=== PATIENT | female | born 1980 | race Caucasian/White ===

== ENCOUNTER 2018-04-21 10:20 | Emergency (ER) | payer MEDICAID ==
[~2018-04-21] VITALS: Ht 170.2 cm; Wt 121.1 kg
[2018-04-21] MEDS ORDERED: cefTRIAXone SOD 1,000 MG VL IM ONE (14:00)
[2018-04-21 14:15] VITALS: BP 149/86
== END 2018-04-21 14:24 | disposition home or self-care (01) ==
LOC: ER 10:20
DX: O26.891 Other specified pregnancy related conditions, first trimester (principal); L03.211 Cellulitis of face; Z3A.13 13 weeks gestation of pregnancy
CPT/HCPCS: 96372; 99283; J0696

== ENCOUNTER 2018-07-03 16:05 | Observation (INO) | payer MEDICAID ==
[2018-07-03] MEDS ORDERED: ESCI10TA PO (17:16)
[2018-07-03] MEDS ORDERED: PREN-96 PO (17:16)
== END 2018-07-03 17:00 | disposition home or self-care (01) | DRG 566 ==
LOC: LDRP 16:05
PROVIDERS: ADMIT Specialist; ATTEND Specialist
DX: O36.8120 Decreased fetal movements, second trimester, not applicable or unspecified (principal); Z3A.23 23 weeks gestation of pregnancy
CPT/HCPCS: 59025; 81002; G0378

== ENCOUNTER 2018-10-03 16:00 | Observation (INO) | payer MEDICAID ==
[~2018-10-03 16:00] MED LIST: ESCI10TA PO; PREN-96 PO
== END 2018-10-03 17:00 | disposition home or self-care (01) | DRG 566 ==
LOC: LDRP 16:00
PROVIDERS: ADMIT Specialist; ATTEND Specialist
DX: O62.9 Abnormality of forces of labor, unspecified (principal); O09.513 Supervision of elderly primigravida, third trimester; Z3A.36 36 weeks gestation of pregnancy
CPT/HCPCS: 59025; 81002; 87086; G0378

== ENCOUNTER 2018-10-13 10:40 | Observation (INO) | payer MEDICAID | END 2018-10-13 12:10 | disposition home or self-care (01) | DRG 566 | LOC: LDRP 10:40 | PROVIDERS: ADMIT Obstetrics & Gynecology; ATTEND Obstetrics & Gynecology | DX: O36.63X0 Maternal care for excessive fetal growth, third trimester, not applicable or unspecified (principal); O09.513 Supervision of elderly primigravida, third trimester; Z3A.37 37 weeks gestation of pregnancy | CPT/HCPCS: 59025; 76818; 81002; G0378 ==

== ENCOUNTER 2018-10-16 06:08 | Inpatient (IN) | payer MEDICAID ==
[~2018-10-16] VITALS: Ht 2.5 cm; Wt 0.0 kg
[2018-10-16] VITALS (9 sets, daily range): BP systolic 97–141; BP diastolic 66–92
[2018-10-16] MEDS: LACTATED RINGER'S 1,000 ML IV SCH ×2 (08:00→17:19)
[2018-10-16 09:16] LABS: Urine Bacteria NONE SEEN /hpf (None Seen); Urine Blood 2+ /uL (Negative); Urine Mucus FEW (None Seen); Urine Specific Gravity 1.035 (1.001-1.035); Urine WBC 3 /hpf (0 - 5)
[2018-10-16 09:20] LABS: Albumin 2.3 g/dL (3.4-5.0); Potassium 3.6 mmol/L (3.5-5.1)
[2018-10-16 09:25] LABS: BUN/Creatinine Ratio 17.5; Bilirubin, Total 0.3 mg/dL (0.2-1.0); Calcium 8.1 mg/dL (8.5-10.1); Total Protein 6.1 g/dL (6.4-8.2); Uric Acid 4.3 mg/dL (2.6-6.0)
[2018-10-16 09:27] LABS: INR 0.84 (0.9-1.15); Partial Thromboplastin Time 24.7 sec (23.78-33.04); Prothrombin Time 9.1 sec (9.27-12.13)
[2018-10-16] MEDS ORDERED: NALBUPHINE HCL 10 MG/1ml INJECTION ONE (09:30)
[2018-10-16 10:57] LABS: Basophils # (auto) 0 uL; Eosinophils # (auto) 0 uL; Eosinophils % (auto) 0.1 % (0.0-7.0); Hemoglobin 10.6 g/dL (12.2-16.2)
[2018-10-16 10:58] LABS: Basophils % (auto) 0.3 % (0.0-2.0); Hematocrit 32.9 % (36.0-46.0); Lymphocytes # (auto) 1.3 uL; Lymphocytes % (auto) 9.8 % (10.0-50.0); Mean Corpuscular Hemoglobin 26.8 pg (28.0-32.0); Mean Corpuscular Hgb Conc. 32.3 g/dL (32.0-36.0); Mean Corpuscular Volume 83.1 fL (80.0-100.0); Monocytes # (auto) 0.5 uL; Monocytes % (auto) 3.6 % (0.0-12.0); Neutrophils # (auto) 11.6 uL; Neutrophils % (auto) 86.2 % (37.0-80.0); Platelet Count (auto) 154 10^3/uL (140-450); Red Blood Cells 3.96 10^6/uL (4.0-5.20); Red Cell Distribution Width 15.3 % (11.8-14.3); White Blood Cell 13.5 10^3/uL (4.4-10.8)
[2018-10-16 11:07] LABS: Alcohol, Urine < 3.0 mg/dL (0-5); Amphetamine Screen, Urine NEGATIVE (NEGATIVE); Barbiturate Scree,Urine NEGATIVE (NEGATIVE); Benzodiazephine Screen, Urine NEGATIVE (NEGATIVE); Cannabinoid Screen, Urine NEGATIVE (NEGATIVE); Cocaine Screen, Urine NEGATIVE (NEGATIVE); Opiate Scree,Urine NEGATIVE (NEGATIVE); Phencyclidine Screen, Urine NEGATIVE (NEGATIVE)
[2018-10-16] MEDS ORDERED: TETRACAINE 1% INJ 2 ML VIAL IJ ONE (11:58)
[2018-10-16] MEDS ORDERED: fentaNYL CITRATE 100 MCG/2 ML VL ONE (12:18)
[2018-10-16] MEDS ORDERED: MIDAZOLAM HCL 1MG/1ML-2 ML VIAL ONE (12:18)
[2018-10-16] MEDS ORDERED: D5 IV SCH (12:24)
[2018-10-16] MEDS ORDERED: OXYTOCIN IV SCH (12:24)
[2018-10-16] MEDS ORDERED: LACTATED RINGERS IV SCH (12:24)
[2018-10-16] MEDS ORDERED: ceFAZolin 1GM VL ONE (12:28)
[2018-10-16] MEDS ORDERED: OXYTOCIN 10 UNIT/ML 10ML VIAL ONE (12:28)
[2018-10-16] MEDS ORDERED: MORPHINE SULF(PF) 0.5MG/ML 10ML VIAL ONE (12:29)
[2018-10-16] MEDS ORDERED: MORPHINE SULFATE 4 MG/ML SYR/VIAL IV PRN (12:30)
[2018-10-16] MEDS ORDERED: ONDANSETRON HCL 4 MG/2 ML VIAL IV PRN ×2 (12:30→13:45)
[2018-10-16] MEDS ORDERED: ceFAZolin 1GM/50ML 50 ML IV SCH (12:30)
[2018-10-16] MEDS ORDERED: LABETALOL HCL 5 MG/ML 4ML SYRINGE IV PRN (13:45)
[2018-10-16] MEDS ORDERED: DEXAMETHASONE SOD PHOS 10MG/1ML VIAL INJ IV PRN (13:45)
[2018-10-16] MEDS ORDERED: diphenhdrAMINE HCL 50 MG/1 ML VL IV PRN (13:45)
[2018-10-16] MEDS ORDERED: NALBUPHINE HCL 10 MG/1ml INJECTION SUBCUT ONE (13:45)
[2018-10-16] MEDS ORDERED: NALOXONE HCL 0.4 MG/ML VIAL IV PRN (13:45)
[2018-10-16] MEDS ORDERED: HYDROmorphone HCL 2 MG/ML VL IV PRN (13:45)
[2018-10-16] MEDS ORDERED: MIDAZOLAM HCL 1MG/1ML-2 ML VIAL IV PRN (13:45)
[2018-10-16] MEDS ORDERED: ePHEDrine SULFATE 50 MG/ML AMP IV PRN (13:45)
--- NOTE | 2018-10-16 14:15 | NUR ---
INFANT BROUGHT TO PACU FOR SKIN TO SKIN AND
--- NOTE | 2018-10-16 14:45 | NUR ---
Teaching: Reviewed information in [employer] booklet with patient. Discussed benefits of and risks associated with not . Discussed different positions, proper latch, feeding cues, and baby-led . Provided information of medication side effects related to . All questions and concerns addressed at this time. Patient verbalized understanding of information.
--- NOTE | 2018-10-16 15:00 | NUR ---
Report received from Yumiko nutritionist Dressing dry clean and intact, Fundus 2 below, Vitals stable.
--- NOTE | 2018-10-16 16:00 | NUR ---
[facility] Pt cleaned and new pad placed.
[2018-10-16] MEDS: KETOROLAC TROMETH 30 MG/ML 1ML VIAL IV PRN (17:18)
[2018-10-16 20:26] LABS: Basophils # (auto) 0 uL; Basophils % (auto) 0.1 % (0.0-2.0); Eosinophils # (auto) 0 uL; Hematocrit 31.4 % (36.0-46.0); Hemoglobin 10.1 g/dL (12.2-16.2); Lymphocytes # (auto) 1.6 uL; Lymphocytes % (auto) 11.8 % (10.0-50.0); Mean Corpuscular Hgb Conc. 32.2 g/dL (32.0-36.0); Mean Corpuscular Volume 83.9 fL (80.0-100.0); Monocytes # (auto) 0.6 uL; Monocytes % (auto) 4.3 % (0.0-12.0); Neutrophils # (auto) 11.3 uL; Neutrophils % (auto) 83.8 % (37.0-80.0); Nucleated Red Blood Cells % 0.1 %; Platelet Count (auto) 155 10^3/uL (140-450); Red Blood Cells 3.74 10^6/uL (4.0-5.20); Red Cell Distribution Width 15.4 % (11.8-14.3); White Blood Cell 13.4 10^3/uL (4.4-10.8)
[2018-10-16] MEDS: ceFAZolin 1GM/50ML 50 ML IV SCH (21:10)
--- NOTE | 2018-10-16 23:35 | NUR ---
Spoke with Varghese CABA about low urinary output. Orders received to give 500ml LR bolus. Will follow through.
[2018-10-17] VITALS (8 sets, daily range): BP systolic 118–138; BP diastolic 63–84
--- NOTE | 2018-10-17 01:40 | NUR ---
Ambulation: Patient OOB with standby assistance by RN. Patient ambulated to bathroom with steady gait to bedside chair. Sawyer catheter still in place per M. CN orders. [facility] teaching provided with returned demonstration by patient. Clean gown provided and bed linen changed. Patient sits in chair at bedside with no distress noted.
[2018-10-17] MEDS: ceFAZolin 1GM/50ML 50 ML IV SCH ×2 (04:58→12:52)
[2018-10-17 06:50] LABS: Basophils # (auto) 0 uL; Basophils % (auto) 0.1 % (0.0-2.0); Eosinophils # (auto) 0 uL; Eosinophils % (auto) 0.1 % (0.0-7.0); Hematocrit 28.2 % (36.0-46.0); Hemoglobin 9.4 g/dL (12.2-16.2); Lymphocytes # (auto) 0.9 uL; Lymphocytes % (auto) 9.2 % (10.0-50.0); Mean Corpuscular Hemoglobin 28.1 pg (28.0-32.0); Mean Corpuscular Hgb Conc. 33.5 g/dL (32.0-36.0); Mean Corpuscular Volume 83.8 fL (80.0-100.0); Monocytes # (auto) 0.4 uL; Monocytes % (auto) 3.7 % (0.0-12.0); Neutrophils # (auto) 8.4 uL; Neutrophils % (auto) 86.9 % (37.0-80.0); Nucleated Red Blood Cells % 0.1 %; Platelet Count (auto) 151 10^3/uL (140-450); Red Blood Cells 3.36 10^6/uL (4.0-5.20); Red Cell Distribution Width 15.3 % (11.8-14.3); White Blood Cell 9.6 10^3/uL (4.4-10.8)
[2018-10-17 07:09] LABS: RPR Non Reactive (Non Reactive)
[2018-10-17] MEDS: KETOROLAC TROMETH 30 MG/ML 1ML VIAL IV PRN (07:17)
--- NOTE | 2018-10-17 07:46 | NUR ---
Martino catheter dc'd Order to discontinue martino catheter from [facility]. Martino dc'd with clean technique following deflation of balloon. Patient tolerated well with no complaints of pain. Marisa care provideed, will Continue care.
--- NOTE | 2018-10-17 11:22 | NUR ---
PATIENT AMBULATING IN HALLS WITH STEADY GAIT, NO DISTRESS NOTED
[2018-10-17] MEDS ORDERED: BISACODYL 10 MG RECT SUPP PR PRN (13:00)
[2018-10-17] MEDS ORDERED: HYDROcodone-ACET 5/325MG TAB PO PRN ×2 (13:00)
[2018-10-17] MEDS: IBUPROFEN 800 MG TAB PO PRN ×2 (13:36→22:07)
[2018-10-17] MEDS ORDERED: guaiFENesin 200 MG/10 ML UD PO PRN (14:45)
[2018-10-17] MEDS: SIMETHICONE 80 MG CHEWABLE TABLET PO SCH ×2 (18:00→22:07)
[2018-10-17] MEDS: DOCUSATE SOD 100 MG CAP PO SCH (22:07)
[2018-10-18 03:00] VITALS: BP 137/75
[2018-10-18] MEDS: SIMETHICONE 80 MG CHEWABLE TABLET PO SCH ×4 (05:39→22:00)
[2018-10-18] MEDS: IBUPROFEN 800 MG TAB PO PRN ×2 (05:39→20:29)
[2018-10-18 07:30] VITALS: BP 135/69
[2018-10-18] MEDS: DOCUSATE SOD 100 MG CAP PO SCH ×2 (10:10→22:00)
[2018-10-18 11:30] VITALS: BP 140/77
[2018-10-18 15:30] VITALS: BP 128/72
[2018-10-18 19:00] VITALS: BP 136/85
[2018-10-18 23:00] VITALS: BP 120/73
[2018-10-19 02:57] VITALS: BP 134/77
[2018-10-19] MEDS: SIMETHICONE 80 MG CHEWABLE TABLET PO SCH ×2 (06:00→12:00)
[2018-10-19 06:50] VITALS: BP 133/85
[2018-10-19] MEDS: DOCUSATE SOD 100 MG CAP PO SCH (10:00)
[2018-10-19 11:00] VITALS: BP 137/75
--- NOTE | 2018-10-19 11:00 | NUR ---
C/S Staple Removal DC Note: Orders received to remove robert. Robert removed using sterile technique. Lower abdominal incision approximated, no drainage/redness/inflammation visualized at time of removal. Steri-strips applied. Education provided on incisional care. Patient verbalized understanding and willingness to comply to instructions/teaching provided.
--- NOTE | 2018-10-19 12:00 | NUR ---
Discharge: Discharge instructions given as ordered. Pt encouraged to follow up with NURSING EDUCATION CONSULTANT as instructed. All questions and concerns addressed. Patient verbalized understanding. Medication reconciliation completed and copy given to patient. Patient encouraged to prepare to depart unit.
[2018-10-19 15:00] VITALS: BP 132/75
[2018-10-19 15:43] VITALS: BP 132/83
--- NOTE | 2018-10-19 15:43 | NUR ---
Discharge: Patient taken to vehicle via wheelchair with all personal belongings, accompanied by staff and family member. No distress noted at time of departure, no adverse changes in status since initial assessment.
== END 2018-10-19 15:43 | disposition home or self-care (01) | DRG 540 ==
LOC: OBSVTOIN 06:08 → LDRP 06:08
PROVIDERS: ADMIT Specialist; ATTEND Specialist
PROC: 10D00Z1 Extraction of Products of Conception, Low, Open Approach (ICD-10-PCS; principal; 2018-10-16 12:11)
DX: O69.81X0 Labor and delivery complicated by cord around neck, without compression, not applicable or unspecified (principal); E66.01 Morbid (severe) obesity due to excess calories; O36.63X0 Maternal care for excessive fetal growth, third trimester, not applicable or unspecified; Z37.0 Single live birth; Z3A.38 38 weeks gestation of pregnancy; O42.92 Full-term premature rupture of membranes, unspecified as to length of time between rupture and onset of labor; O99.214 Obesity complicating childbirth; O77.0 Labor and delivery complicated by meconium in amniotic fluid
CPT/HCPCS: 36415; 51702; 59025; 80053; 80307; 81001; 81002; 84550; 85025; 85610; 85730; 86592; 86850; 86900; 86901; 94760; 96374; G0378; J0690; J1885; J2250; J2405; J2590